=== PATIENT | female | born 1955 | race Caucasian/White ===

== ENCOUNTER 2017-04-16 13:00 | Outpatient (CLI) | payer BC ==
[2017-04-16 13:36] LABS: HEMOGLOBIN 12.6 g/dL (12.2-16.2); LYMPH # 0.8 K/mm3 (0.7-4.5); LYMPH % 16.9 % (10-50.0)
[2017-04-16 14:30] VITALS: BP 122/74
[2017-04-16 15:00] VITALS: BP 122/74
== END 2017-04-16 15:15 | disposition home or self-care (01) ==
LOC: COP 13:00
PROVIDERS: Internal Medicine
DX: C34.92 Malignant neoplasm of unspecified part of left bronchus or lung (principal)
CPT/HCPCS: J1642; J9271